=== PATIENT | male | born 1975 ===

== ENCOUNTER 2018-10-28 00:02 | Observation (INO) | payer MEDICAID, OTHER ==
[2018-10-28] MEDS ORDERED: Sodium Chloride 0.9% 1,000 ML IV STA (00:27)
--- NOTE | 2018-10-28 00:27 | ED PDOC ---
Arrival/HPI - General Chief Complaint: Abdominal Pain Time Seen by Provider: 10/28/18 00:10 Historian: Patient - History of Present Illness Narrative History of Present Illness (Text): 10/28/18 00:26 Anderson Banerjee is a 43 year old male, whose past medical history includes cholecystectomy and hypertension, who presents to the ED complaining of abdominal pain. Patient states he has been experiencing LLQ abdominal pain radiating to his left flank at time for the past 2 days. Patient reports associated intermittent nausea. Patient denies any fever, chills, vomiting, diarrhea, headache, dizziness, or any other complaints. Symptom Onset: Gradual Symptom Course: Unchanged Activities at Onset: Light Context: Home Past Medical History - Provider Review Nursing Documentation Reviewed: Yes - Cardiac Hx Cardiac Disorders: Yes Hx Hypertension: Yes - Pulmonary Hx Respiratory Disorders: No - Gastrointestinal Hx Gastrointestinal Disorders: Yes Other/Comment: Gall Bladder removal - Genitourinary/Gynecological Hx Genitourinary Disorders: No - Psychiatric Hx Psychophysiologic Disorder: No Hx Substance Use: No - Surgical History Hx Cholecystectomy: Yes - Anesthesia Hx Anesthesia: Yes Family/Social History - Physician Review Nursing Documentation Reviewed: Yes Family/Social History: Unknown Family HX Smoking Status: Never Smoked Hx Alcohol Use: Yes Frequency of alcohol use: Socially Hx Substance Use: No Allergies/Home Meds Allergies/Adverse Reactions: Allergies No Known Allergies Allergy (Verified 10/28/18 00:12) Review of Systems - Physician Review All systems were reviewed & negative as marked: Yes - Review of Systems Constitutional: Normal. absent: Fevers Eyes: Normal ENT: Normal Respiratory: Normal. absent: SOB, Cough Cardiovascular: Normal. absent: Chest Pain Gastrointestinal: Abdominal Pain. absent: Diarrhea, Vomiting Genitourinary Male: Normal. absent: Dysuria, Frequency, Hematuria, Urinary Output Changes Musculoskeletal: Back Pain. absent: Neck Pain Skin: Normal. absent: Rash Neurological: Normal. absent: Headache, Dizziness Endocrine: Normal Hemo/Lymphatic: Normal Psychiatric: Normal Physical Exam Vital Signs Reviewed: Yes Vital Signs Temp Pulse Resp BP Pulse Ox 10/28/18 00:12 97.7 F 86 18 154/90 H 95 Temperature: Afebrile Blood Pressure: Normal Pulse: Regular Respiratory Rate: Normal Appearance: Positive for: Well-Appearing, Non-Toxic, Comfortable Pain Distress: None Mental Status: Positive for: Alert and Oriented X 3 - Systems Exam Head: Present: Atraumatic, Normocephalic Pupils: Present: PERRL Extroacular Muscles: Present: EOMI Conjunctiva: Present: Normal Mouth: Present: Moist Mucous Membranes Neck: Present: Normal Range of Motion Respiratory/Chest: Present: Clear to Auscultation, Good Air Exchange. No: Respiratory Distress, Accessory Muscle Use Cardiovascular: Present: Regular Rate and Rhythm, Normal S1, S2. No: Murmurs Abdomen: Present: Tenderness (left lower abdomen). No: Distention, Peritoneal Signs Back: Present: Normal Inspection. No: CVA Tenderness, Midline Tenderness, Paraspinal Tenderness Upper Extremity: Present: Normal Inspection. No: Cyanosis, Edema Lower Extremity: Present: Normal Inspection. No: Edema Neurological: Present: GCS=15, CN II-XII Intact, Speech Normal Skin: Present: Warm, Dry, Normal Color. No: Rashes Psychiatric: Present: Alert, Oriented x 3, Normal Insight, Normal Concentration Medical Decision Making ED Course and Treatment: 10/28/18 00:26 Impression: 43 year old male complaining of LLQ pain radiating to his left flank pain. Plan: -- CT Abdomen and Pelvis w/o contrast -- EKG -- Labs, lipase -- UA -- IV fluids -- Toradol -- Reassess Progress Notes: Reviewed EKG, NSR at 84 bpm. Incomplete RBBB. No acute changes. 10/28/18 01:40 CT Abdomen and Pelvis: Diffuse colonic diverticulosis. Uncomplicated acute diverticulitis of the descending colon without perforation or abscess formation. Bilateral basilar hypoventilatory pulmonary changes. Normal unenhanced liver. Surgically absent gallbladder and nondilated extrahepatic biliary system. Normal unenhanced spleen. Normal pancreas. Normal bilateral adrenal glands. Normal size of the right kidney. There is no right renal mass. There are no right renal calculi. There is no right hydronephrosis. Normal visualized right ureter. Normal size of the left kidney. There is no left renal mass. There are no left renal calculi. There is no left hydronephrosis. Normal visualized left ureter. Normal visualized stomach. Normal small intestine. The appendix is visualized and appears normal. There is no demonstrated peritoneal fluid. Normal abdominal aorta. Normal inferior vena cava. Normal retroperitoneum. Normal urinary bladder. There is no pelvic mass lesion or lymphadenopathy. There is no pelvic fluid. Normal abdominal wall. Normal osseous structures. IMPRESSION: Uncomplicated acute diverticulitis of the descending colon. Electronically signed on Oct 28, 2018 1:34:39 AM EST by: Salvador Gomez M.D., Certified by ABR, MSK, Neuroradiology 10/28/18 01:47 Case discussed with medical reimbursement specialist and Dr. Reese, who accept pt in to hospitalist service. Pt will go to [facility] observation for diverticulitis. - Lab Interpretations I have reviewed the lab results: Yes - RAD Interpretation Cold Meat Cook: Radiologist - EKG Interpretation Interpreted by ED Physician: Yes Type: 12 lead EKG - Scribe Statement The provider has reviewed the documentation as recorded by the Scribe Gala Diaz All medical record entries made by the Scribe were at my direction and personally dictated by me. I have reviewed the chart and agree that the record accurately reflects my personal performance of the history, physical exam, medical decision making, and the department course for this patient. I have also personally directed, reviewed, and agree with the discharge instructions and disposition. Disposition/Present on Arrival - Present on Arrival Any Indicators Present on Arrival: No History of DVT/PE: No History of Uncontrolled Diabetes: No Urinary Catheter: No History of Decub. Ulcer: No History Surgical Site Infection Following: None - Disposition Have Diagnosis and Disposition been Completed?: Yes Diagnosis: Diverticulitis Disposition: HOSPITALIZED Disposition Time: 01:46 Patient Problems: Current Active Problems Problem Status Onset Diverticulitis Acute Condition: STABLE Forms: [employer] (Amharic)
[2018-10-28 01:24] LABS: HEMOGLOBIN 13.5 g/dL (14.0-18.0); MEAN CELL VOLUME 87.5 fl (80.0-105.0); MEAN CORPUSCULAR HEMOGLOBIN 30.6 pg (25.0-35.0); MEAN PLATELET VOLUME 10.4 fl (7.0-11.0); RBC 4.41 10^6/uL (3.5-6.1); URINE BILIRUBIN NEGATIVE (NEGATIVE); URINE BLOOD NEGATIVE (NEGATIVE); URINE GLUCOSE (UA) NEGATIVE (NEGATIVE); URINE LEUKOCYTE ESTERASE NEGATIVE Leu/uL (NEGATIVE); URINE PROTEIN TRACE mg/dL (<30 mg/dL); URINE UROBILINOGEN 0.2 E.U./dL (<1 E.U./dL)
[2018-10-28 01:25] LABS: URINE APPEARANCE CLEAR (CLEAR); URINE COLOR YELLOW (YELLOW)
[2018-10-28 01:39] LABS: ALB/GLOB RATIO 1.3 (1.1-1.8); ALT/SGPT 54 U/L (7-56); AST/SGOT 30 U/L (17-59); BLOOD UREA NITROGEN 17 mg/dL (7-21); CALCIUM 8.4 mg/dL (8.4-10.5); GFR NON-AFRICAN AMERICAN > 60; LIPASE 87 U/L (23-300)
[2018-10-28] MEDS ORDERED: cefTRIAXone 1 gm 1 GM/100 ML BAG IV STA (01:43)
[2018-10-28] MEDS ORDERED: metroNIDAZOLE IV 500 mg/100 ml 500 MG/100 ML BAG IVPB STA (01:44)
[2018-10-28] MEDS ORDERED: Potassium Chloride 20 mEq ER Tab PO STA (01:47)
[2018-10-28 02:00] LABS: URINE EPITHELIAL CELLS 0 - 2 /hpf (0-5); URINE RBC 0 - 2 /hpf (0-2); URINE WBC 0 - 2 /hpf (0-6)
[2018-10-28] MEDS: Sodium Chloride 0.9% 1,000 ML IV SCH ×2 (03:44→14:36)
[2018-10-28 04:35] VITALS: BMI 33.1
--- NOTE | 2018-10-28 04:43 | CP.PCM.HP ---
<Junaid Fernández - Last Filed: 10/28/18 05:29> History of Present Illness - History of Present Illness History of Present Illness: Junaid Fernández, PGY-1 History and Physical for the Hospitalist Service CC: LLQ abdominal pain Mr. Banerjee is a 43 M with significant PMHx significant for HTN who presents with LLQ abdominal pain. Patient reports a 2 day history of left sided abdominal pain that radiates to L flank. Patient reports intermittent waves of nausea but denies vomiting. Patient reports pain is worse with movement and improves when lying down. Patient reports associated watery nonbloody feces x3 times since yesterday, with many other episodes of the urge to defecate. Patient rates the p ain as an 8/10. Patient denies recent infections and reports a regular appetite. Patient reports general fatigue. Denies chest pain, shortness of breath, palpitations, fevers, chills, dysuria, melena, hematochezia, scrotal pain, recent travel, sick contacts. PMHx: HTN PSHx: cholecystectomy All: NKDA SOcial: Denies ETOH, tobacco and illicit drug use Fam hx: denies Meds: denies PMD: None Present on Admission - Present on Admission Any Indicators Present on Admission: No Review of Systems - Review of Systems Review of Systems: 12 point ROS completed and negative except as described in HPI Past Patient History - Past Social History Smoking Status: Never Smoked - CARDIAC Hx Cardiac Disorders: Yes Hx Hypercholesterolemia: Yes Hx Hypertension: Yes - PULMONARY Hx Respiratory Disorders: No - NEUROLOGICAL Hx Neurological Disorder: No - HEENT Hx HEENT Problems: No Other/Comment: uses glasses - RENAL Hx Chronic Kidney Disease: No - ENDOCRINE/METABOLIC Hx Endocrine Disorders: No - HEMATOLOGICAL/ONCOLOGICAL Hx Blood Disorders: No - INTEGUMENTARY Hx Dermatological Problems: No - MUSCULOSKELETAL/RHEUMATOLOGICAL Hx Musculoskeletal Disorders: No Hx Falls: No - GASTROINTESTINAL Hx Gastrointestinal Disorders: Yes Hx Diverticulitis: Yes (current) - GENITOURINARY/GYNECOLOGICAL Hx Genitourinary Disorders: No - PSYCHIATRIC Hx Psychophysiologic Disorder: No Hx Substance Use: No - SURGICAL HISTORY Hx Surgeries: Yes Hx Cholecystectomy: Yes - ANESTHESIA Hx Anesthesia: Yes Meds Allergies/Adverse Reactions: Allergies Allergy/AdvReac Type Severity Reaction Status Date / Time No Known Allergies Allergy Verified 10/28/18 00:12 Physical Exam - Constitutional Appears: Well, Non-toxic, No Acute Distress - Head Exam Head Exam: ATRAUMATIC, NORMAL INSPECTION, NORMOCEPHALIC - Eye Exam Eye Exam: EOMI, Normal appearance Pupil Exam: PERRL - ENT Exam ENT Exam: Mucous Membranes Moist - Neck Exam Neck exam: Positive for: Normal Inspection - Respiratory Exam Respiratory Exam: Decreased Breath Sounds, Clear to Auscultation Bilateral, NORMAL BREATHING PATTERN. absent: Wheezes - Extremities Exam Extremities exam: Positive for: normal inspection. Negative for: joint swelling, tenderness - Back Exam Back exam: absent: CVA tenderness (L), CVA tenderness (R) - Skin Skin Exam: Dry, Intact, Normal Color, Warm Results - Vital Signs Recent Vital Signs: Last Vital Signs Temp 98.0 F 10/28/18 02:17 Pulse 71 10/28/18 02:17 Resp 16 10/28/18 03:20 BP 131/72 10/28/18 02:17 Pulse Ox 97 10/28/18 02:17 - Labs Result Diagrams: 10/28/18 01:10 10/28/18 01:10 Labs: Laboratory Results - last 24 hr 10/28/18 10/28/18 10/28/18 01:10 01:10 01:10 WBC 6.0 RBC 4.41 Hgb 13.5 L Hct 38.6 L MCV 87.5 MCH 30.6 MCHC 35.0 RDW 13.0 Plt Count 169 MPV 10.4 Sodium 139 Potassium 3.4 L Chloride 105 Carbon Dioxide 25 Anion Gap 13 BUN 17 Creatinine 0.8 Est GFR ( Amer) > 60 Est GFR (Non-Af Amer) > 60 Random Glucose 111 H Calcium 8.4 Total Bilirubin 0.4 AST 30 ALT 54 Alkaline Phosphatase 85 Total Protein 7.1 Albumin 4.0 Globulin 3.1 Albumin/Globulin Ratio 1.3 Lipase 87 Urine Color Yellow Urine Appearance Clear Urine pH 7.0 Ur Specific [place] 1.020 Urine Protein Trace H Urine Glucose (UA) Negative Urine Ketones Negative Urine Blood Negative Urine Nitrate Negative Urine Bilirubin Negative Urine Urobilinogen 0.2 Ur Leukocyte Esterase Negative Urine RBC 0 - 2 Urine WBC 0 - 2 Ur Epithelial Cells 0 - 2 Assessment & Plan - Assessment and Plan (Free Text) Assessment: 43 M with PMHx of HTN who presents with LL Q pain likely 2/2 diverticulosis and diverticulitis Diverticulitis - CT Abdomen and Pelvis: Diffuse colonic diverticulosis. Uncomplicated acute diverticulitis of the descending colon without perforation or abscess formation. - Ceftriaxone and Flagyl for intraabdominal coverage - Pain control with Toradol - IVF NS @ 100 cc/hr - fecal leukocytes, stool cx pending HTN - Controlled off of medications - continue to monitor, consider starting on med if necessary Hypokalemia - repleted, continue to monitor in AM labs GI/DVT PPx: Heparin SC, SCDs Protonix Patient seen, case reviewed and plan approved by Dr. Reese. Junaid Fernández, PGY-1 <Walker Reese - Last Filed: 10/28/18 06:18> Results - Vital Signs Recent Vital Signs: Last Vital Signs Temp 98.0 F 10/28/18 02:17 Pulse 71 10/28/18 02:17 Resp 16 10/28/18 03:20 BP 131/72 10/28/18 02:17 Pulse Ox 97 10/28/18 02:17 - Labs Result Diagrams: 10/28/18 01:10 10/28/18 01:10 Labs: Laboratory Results - last 24 hr 10/28/18 10/28/18 10/28/18 01:10 01:10 01:10 WBC 6.0 RBC 4.41 Hgb 13.5 L Hct 38.6 L MCV 87.5 MCH 30.6 MCHC 35.0 RDW 13.0 Plt Count 169 MPV 10.4 Sodium 139 Potassium 3.4 L Chloride 105 Carbon Dioxide 25 Anion Gap 13 BUN 17 Creatinine 0.8 Est GFR ( Amer) > 60 Est GFR (Non-Af Amer) > 60 Random Glucose 111 H Calcium 8.4 Total Bilirubin 0.4 AST 30 ALT 54 Alkaline Phosphatase 85 Total Protein 7.1 Albumin 4.0 Globulin 3.1 Albumin/Globulin Ratio 1.3 Lipase 87 Urine Color Yellow Urine Appearance Clear Urine pH 7.0 Ur Specific [place] 1.020 Urine Protein Trace H Urine Glucose (UA) Negative Urine Ketones Negative Urine Blood Negative Urine Nitrate Negative Urine Bilirubin Negative Urine Urobilinogen 0.2 Ur Leukocyte Esterase Negative Urine RBC 0 - 2 Urine WBC 0 - 2 Ur Epithelial Cells 0 - 2 Attending/Attestation - Attestation I have personally seen and examined this patient.: Yes I have fully participated in the care of the patient.: Yes I have reviewed all pertinent clinical information: Yes Notes (Text): 10/28/18 06:17 Seen and examined. Discussed with resident. Exam and A &P as above. FH: FAIZAN
[2018-10-28] MEDS: metroNIDAZOLE IV 500 mg/100 ml 500 MG/100 ML BAG IVPB SCH ×3 (05:05→21:37)
[2018-10-28] MEDS: Pantoprazole 40 mg EC Tab PO SCH (05:05)
[2018-10-28 07:22] LABS: BASO # 0.02 K/mm3 (0.0-2.0); BASO % 0.4 % (0.0-3.0); EOS # 0.2 (0.0-0.7); HEMOGLOBIN 12.4 g/dL (14.0-18.0); LYMPH # 1.8 (1.2-3.4); LYMPH % 32.6 % (22.0-35.0); MEAN CELL VOLUME 87.6 fl (80.0-105.0); MEAN CORPUSCULAR HEMOGLOBIN 29.7 pg (25.0-35.0); MEAN CORPUSCULAR HGB CONC 33.9 g/dl (31.0-37.0); MEAN PLATELET VOLUME 10.5 fl (7.0-11.0); MONO # 0.5 (0.1-0.6); MONO % 9.7 % (1.0-6.0); RBC 4.18 10^6/uL (3.5-6.1); RED CELL DISTRIBUTION WIDTH 13.1 % (11.5-14.5); WHITE BLOOD COUNT 5.6 10^3/uL (4.5-11.0)
[2018-10-28 07:55] LABS: ALB/GLOB RATIO 1.2 (1.1-1.8); ALBUMIN 3.5 g/dL (3.0-4.8); ALT/SGPT 41 U/L (7-56); AST/SGOT 26 U/L (17-59); BLOOD UREA NITROGEN 18 mg/dL (7-21); CALCIUM 8.1 mg/dL (8.4-10.5); GFR NON-AFRICAN AMERICAN > 60
[2018-10-28] MEDS ORDERED: Potassium Chloride 20 mEq ER Tab PO ONE ×2 (07:56→12:00)
--- NOTE | 2018-10-28 08:48 | CT ---
Date of service: PROCEDURE: CT Abdomen and Pelvis without intravenous contrast HISTORY: COMPARISON: None. TECHNIQUE: CT scan of the abdomen and pelvis was performed without administration of intravenous contrast. Oral contrast was not administered. Coronal and sagittal reformatted images were obtained. Radiation dose: Total exam DLP = 873.93 mGy-cm. This CT exam was performed using one or more of the following dose reduction techniques: Automated exposure control, adjustment of the mA and/or kV according to patient size, and/or use of iterative reconstruction technique. FINDINGS: LOWER THORAX: Dependent atelectasis in the lung bases. Subsegmental atelectasis in the visualized left lower lobe. LIVER: The liver is enlarged and measures 22 cm in craniocaudad dimension.. No gross lesion or ductal dilatation. GALLBLADDER AND BILE DUCTS: Surgically absent. PANCREAS: Normal in size. No gross lesion or ductal dilatation. SPLEEN: Enlarged and measures 15 cm in craniocaudad dimension. ADRENALS: Normal in size. No discrete nodule. KIDNEYS AND URETERS: Both kidneys are normal in size. There is a 3 mm nonobstructing stone in the upper pole of the left kidney no hydronephrosis. VASCULATURE: Normal in caliber. No aortic aneurysm. No aortic atherosclerotic calcification or mural plaque present. BOWEL: Evaluation of the bowel is limited in the absence of oral contrast. The small bowel loops are normal in caliber. There is extensive left colonic diverticulosis. There is segmental circumferential mural thickening in the mid descending colon with pericolonic inflammatory changes. No micro perforation or abscess. APPENDIX: Normal appendix. PERITONEUM: No free fluid. No free air. LYMPH NODES: No enlarged lymph nodes. BLADDER: Well distended and normal in appearance. REPRODUCTIVE: The prostate gland is normal in size. BONES: No acute fracture. Bilateral pars interarticularis defects at L5 with grade 1 anterior listhesis of L5 on S1. Desiccation of the L5-S1 disc. OTHER FINDINGS: None. IMPRESSION: 1. Short segment acute colonic diverticulitis involving the mid descending colon. No micro perforation or abscess. Follow-up imaging after medical management is recommended to ensure complete resolution. 2. Moderate hepatosplenomegaly. 3. 3 mm nonobstructing stone in the upper pole of the left kidney. 4. 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 A preliminary report was provided by [employer] [facility]. The final report is tagged to the PA review folder.
[2018-10-28] MEDS: cefTRIAXone 1 gm 1 GM/100 ML BAG IVPB SCH (09:05)
[2018-10-28] MEDS ORDERED: Ciprofloxacin 200mg/100ml D5W 100 ML IVPB SCH (10:00)
--- NOTE | 2018-10-28 10:21 | CARD ---
APPROVED REPORT Date of service: 10/28/2018 EKG Measurement Heart [id number] <Conclusion> Normal sinus rhythm Incomplete right bundle branch block Otherwise normal ECG
[2018-10-29] MEDS: metroNIDAZOLE IV 500 mg/100 ml 500 MG/100 ML BAG IVPB SCH (05:58)
[2018-10-29] MEDS: Pantoprazole 40 mg EC Tab PO SCH (05:59)
[2018-10-29 07:26] LABS: BASO # 0.02 K/mm3 (0.0-2.0); BASO % 0.4 % (0.0-3.0); EOS # 0.1 (0.0-0.7); EOS % 2.5 % (1.5-5.0); HEMOGLOBIN 13.1 g/dL (14.0-18.0); LYMPH # 1.7 (1.2-3.4); LYMPH % 30.4 % (22.0-35.0); MEAN CELL VOLUME 88.1 fl (80.0-105.0); MEAN CORPUSCULAR HEMOGLOBIN 29.9 pg (25.0-35.0); MEAN CORPUSCULAR HGB CONC 33.9 g/dl (31.0-37.0); MEAN PLATELET VOLUME 10.4 fl (7.0-11.0); MONO # 0.3 (0.1-0.6); MONO % 6.1 % (1.0-6.0); RBC 4.38 10^6/uL (3.5-6.1); RED CELL DISTRIBUTION WIDTH 13.2 % (11.5-14.5); WHITE BLOOD COUNT 5.5 10^3/uL (4.5-11.0)
[2018-10-29 08:16] LABS: ALB/GLOB RATIO 1.1 (1.1-1.8); ALBUMIN 3.6 g/dL (3.0-4.8); ALT/SGPT 49 U/L (7-56); AST/SGOT 27 U/L (17-59); CALCIUM 8.5 mg/dL (8.4-10.5); GFR NON-AFRICAN AMERICAN > 60
--- NOTE | 2018-10-29 09:00 | CP.PCM.PN ---
<Tj Greenberg - Last Filed: 10/29/18 14:53> Subjective - Date & Time of Evaluation Date of Evaluation: 10/29/18 Time of Evaluation: 09:00 - Subjective Subjective: PGY-1 Medicine Progress note for Dr. Parker Patient seen and examined at bedside. No acute events overnight. Patient states that his abdominal pain is improving and is a 3/10 today. He states that he has been tolerating his liquid diet and would like to try to start eating solid food. He denies nausea, vomiting, diarrhea, headache, chest pain, shortness of b reath, diarrhea, or urinary symptoms. Objective - Vital Signs/Intake and Output Vital Signs (last 24 hours): Temp Pulse Resp BP Pulse Ox 98 F 69 18 112/86 97 10/28/18 21:25 10/28/18 21:25 10/28/18 21:25 10/28/18 21:25 10/28/18 21:25 Intake and Output: 10/29/18 10/29/18 06:59 18:59 Intake Total 5220 Output Total 3000 Balance 2220 - Medications Medications: Current Medications Heparin Sodium (Porcine) (Heparin) 5,000 units SC Q8 [facility]; Protocol Last Admin: 10/29/18 05:59 Dose: 5,000 units Metronidazole (Flagyl) 500 mg in 100 mls @ 100 mls/hr IVPB Q8 [facility]; Protocol Last Admin: 10/29/18 05:58 Dose: 100 mls/hr Sodium Chloride (Sodium Chloride 0.9%) 1,000 mls @ 100 mls/hr IV .Q10H K[facility]AN Last Admin: 10/28/18 14:36 Dose: 100 mls/hr Ceftriaxone Sodium (Rocephin 1 Gram Ivpb) 1 gm in 100 mls @ 100 mls/hr IVPB D AILY [facility]; Protocol Last Admin: 10/28/18 09:05 Dose: 100 mls/hr Ketorolac Tromethamine (Toradol) 15 mg IVP Q6H PRN PRN Reason: Pain, moderate (4-7) Last Admin: 10/29/18 01:45 Dose: 15 mg Pantoprazole Sodium (Protonix Ec Tab) 40 mg PO 0600 [facility] Last Admin: 10/29/18 05:59 Dose: 40 mg - Labs Labs: 10/29/18 07:00 10/29/18 07:00 - Constitutional Appears: Well, Non-toxic, No Acute Distress - Head Exam Head Exam: ATRAUMATIC, NORMAL INSPECTION - Eye Exam Eye Exam: EOMI, Normal appearance Pupil Exam: NORMAL ACCOMODATION, PERRL - Respiratory Exam Respiratory Exam: Clear to Ausculation Bilateral. absent: Rales, Rhonchi, Wheezes, Respiratory Distress - Cardiovascular Exam Cardiovascular Exam: REGULAR RHYTHM, +S1, +S2. absent: Gallop, Rubs, Murmur - GI/Abdominal Exam GI & Abdominal Exam: Soft, Tenderness (Tender to palpation on the LUQ and LLQ), Normal Bowel Sounds. absent: Distended, Rigid - Extremities Exam Extremities Exam: absent: Calf Tenderness, Pedal Edema - Neurological Exam Neurological Exam: Alert, Awake, Oriented x3 - Psychiatric Exam Psychiatric exam: Normal Affect, Normal Mood - Skin Skin Exam: Dry, Intact, Normal Color, Warm Assessment and Plan - Assessment and Plan (Free Text) Assessment: Patient is a 43 year old male with PMHx of HTN who presents with LLQ pain admitted for acute diverticulitis. Plan: Acute diverticulitis - CT Abdomen and Pelvis: Diffuse colonic diverticulosis. Uncomplicated acute diverticulitis of the descending colon without perforation or abscess formation. - Discontinue Rocephin - Start Ciprofloxacin 500mg PO BID (Started on 10/29) - Metronidazole 500mg PO TID (started on 10/28) - Toradol 15mg IVP PRN for pain - IVF NS @ 100 cc/hr - Advance to soft diet today - fecal leukocytes, stool cx pending Hx of HTN - Patient not on antihypertensive medications at home - Patient has been hemodynamically stable - Continue to monitor Hypokalemia, resolved - repleted, continue to monitor in AM labs GI/DVT PPx: - Heparin SC, SCDs - Protonix 40mg PO QD Patient seen and case discussed with attending, Dr. Parker. Tj Greenberg, PGY-1 <Sanford Parker - Last Filed: 10/30/18 19:59> Objective - Vital Signs/Intake and Output Vital Signs (last 24 hours): Temp Pulse Resp BP Pulse Ox 98 F 59 L 20 108/74 98 10/30/18 06:00 10/30/18 06:00 10/30/18 06:00 10/30/18 06:00 10/30/18 06:00 - Labs Labs: 10/30/18 06:30 10/30/18 06:30 Attending/Attestation - Attestation I have personally seen and examined this patient.: Yes I have fully participated in the care of the patient.: Yes I have reviewed all pertinent clinical information, including history, physical exam and plan: Yes
[2018-10-29 09:11] LABS: BLOOD UREA NITROGEN 11 mg/dL (7-21)
[2018-10-29] MEDS: cefTRIAXone 1 gm 1 GM/100 ML BAG IVPB SCH (09:23)
[2018-10-29] MEDS: Sodium Chloride 0.9% 1,000 ML IV SCH (13:56)
[2018-10-29 22:35] VITALS: TEMP 98
[2018-10-30] MEDS: Pantoprazole 40 mg EC Tab PO SCH (05:50)
[2018-10-30 06:51] LABS: BASO # 0.02 K/mm3 (0.0-2.0); BASO % 0.4 % (0.0-3.0); EOS # 0.2 (0.0-0.7); EOS % 3.5 % (1.5-5.0); HEMOGLOBIN 13.7 g/dL (14.0-18.0); LYMPH # 1.4 (1.2-3.4); LYMPH % 27.8 % (22.0-35.0); MEAN CELL VOLUME 87.3 fl (80.0-105.0); MEAN CORPUSCULAR HEMOGLOBIN 29.9 pg (25.0-35.0); MEAN CORPUSCULAR HGB CONC 34.3 g/dl (31.0-37.0); MEAN PLATELET VOLUME 10.8 fl (7.0-11.0); MONO # 0.4 (0.1-0.6); MONO % 7.6 % (1.0-6.0); RBC 4.58 10^6/uL (3.5-6.1); RED CELL DISTRIBUTION WIDTH 12.9 % (11.5-14.5); WHITE BLOOD COUNT 4.9 10^3/uL (4.5-11.0)
--- NOTE | 2018-10-30 07:08 | CP.PCM.PN ---
Subjective - Date & Time of Evaluation Date of Evaluation: 10/30/18 Time of Evaluation: 07:08 Objective - Vital Signs/Intake and Output Vital Signs (last 24 hours): Temp Pulse Resp BP Pulse Ox 98 F 60 18 121/84 97 10/29/18 22:34 10/29/18 22:34 10/29/18 22:34 10/29/18 22:34 10/29/18 22:34 Intake and Output: 10/30/18 10/30/18 06:59 18:59 Intake Total 540 Balance 540 - Medications Medications: Current Medications Ciprofloxacin (Cipro) 500 mg PO Q12 [facility]; Protocol Stop: 11/02/18 22:01 Last Admin: 10/29/18 21:13 Dose: 500 mg Heparin Sodium (Porcine) (Heparin) 5,000 units SC Q8 [facility]; Protocol Last Admin: 10/30/18 05:51 Dose: 5,000 units Ketorolac Tromethamine (Toradol) 15 mg IVP Q6H PRN PRN Reason: Pain, moderate (4-7) Last Admin: 10/29/18 01:45 Dose: 15 mg Metronidazole (Flagyl) 500 mg PO TID [facility]; Protocol Stop: 11/02/18 14:01 Last Admin: 10/29/18 19:25 Dose: 500 mg Pantoprazole Sodium (Protonix Ec Tab) 40 mg PO 0600 [facility] Last Admin: 10/30/18 05:50 Dose: 40 mg - Labs Labs: 10/30/18 06:30 10/29/18 07:00
[2018-10-30 07:20] LABS: ALB/GLOB RATIO 1.2 (1.1-1.8); ALBUMIN 3.9 g/dL (3.0-4.8); ALT/SGPT 52 U/L (7-56); AST/SGOT 32 U/L (17-59); BLOOD UREA NITROGEN 11 mg/dL (7-21); CALCIUM 8.8 mg/dL (8.4-10.5); GFR NON-AFRICAN AMERICAN > 60
[2018-10-30 08:13] VITALS: BP 108/74; PULSE 59; RESP 20; O2SAT 98
--- NOTE | 2018-10-30 17:15 | CP.PCM.DIS ---
<Tj Greenberg - Last Filed: 10/30/18 17:18> Provider - Provider Date of Admission: 10/28/18 01:47 Attending physician: Shaye Bryan MD Time Spent in preparation of Discharge (in minutes): 45 Diagnosis - Discharge Diagnosis (1) Diverticulitis Status: Resolved Hospital Course - Lab Results Lab Results: Micro Results 10/28/18 02:23 Blood Blood Culture - Preliminary NO GROWTH AFTER 48 HOURS 10/28/18 02:05 Blood Blood Culture - Preliminary NO GROWTH AFTER 48 HOURS Most Recent Lab Values WBC 4.9 10^3/uL (4.5-11.0) 10/30/18 06:30 RBC 4.58 10^6/uL (3.5-6.1) 10/30/18 06:30 Hgb 13.7 g/dL (14.0-18.0) L 10/30/18 06:30 Hct 40.0 % (42.0-52.0) L 10/30/18 06:30 MCV 87.3 fl (80.0-105.0) 10/30/18 06:30 MCH 29.9 pg (25.0-35.0) 10/30/18 06:30 MCHC 34.3 g/dl (31.0-37.0) 10/30/18 06:30 RDW 12.9 % (11.5-14.5) 10/30/18 06:30 Plt Count 183 10^3/uL (120.0-450.0) 10/30/18 06:30 MPV 10.8 fl (7.0-11.0) 10/30/18 06:30 Neut % (Auto) 60.7 % (50.0-68.0) 10/30/18 06:30 Lymph % (Auto) 27.8 % (22.0-35.0) 10/30/18 06:30 Banks % (Auto) 7.6 % (1.0-6.0) H 10/30/18 06:30 Eos % (Auto) 3.5 % (1.5-5.0) 10/30/18 06:30 Baso % (Auto) 0.4 % (0.0-3.0) 10/30/18 06:30 Lymph # (Auto) 1.4 (1.2-3.4) 10/30/18 06:30 Banks # (Auto) 0.4 (0.1-0.6) 10/30/18 06:30 Eos # (Auto) 0.2 (0.0-0.7) 10/30/18 06:30 Baso # (Auto) 0.02 K/mm3 (0.0-2.0) 10/30/18 06:30 Absolute Neuts (auto) 2.97 (1.4-6.5) 10/30/18 06:30 Sodium 138 mmol/L (132-148) 10/30/18 06:30 Potassium 3.9 mmol/L (3.6-5.0) 10/30/18 06:30 Chloride 106 mmol/L (98-107) 10/30/18 06:30 Carbon Dioxide 24 mmol/L (21-33) 10/30/18 06:30 Anion Gap 12 (10-20) 10/30/18 06:30 BUN 11 mg/dL (7-21) 10/30/18 06:30 Creatinine 0.7 mg/dl (0.8-1.5) L 10/30/18 06:30 Est GFR ( Amer) > 60 10/30/18 06:30 Est GFR (Non-Af Amer) > 60 10/30/18 06:30 Random Glucose 89 mg/dL (70-110) 10/30/18 06:30 Calcium 8.8 mg/dL (8.4-10.5) 10/30/18 06:30 Phosphorus 3.7 mg/dL (2.5-4.5) 10/28/18 06:25 Magnesium 2.1 mg/dL (1.7-2.2) 10/28/18 06:25 Total Bilirubin 0.4 mg/dL (0.2-1.3) 10/30/18 06:30 AST 32 U/L (17-59) 10/30/18 06:30 ALT 52 U/L (7-56) 10/30/18 06:30 Alkaline Phosphatase 83 U/L (38-126) 10/30/18 06:30 Total Protein 7.1 g/dL (5.8-8.3) 10/30/18 06:30 Albumin 3.9 g/dL (3.0-4.8) 10/30/18 06:30 Globulin 3.2 gm/dL 10/30/18 06:30 Albumin/Globulin Ratio 1.2 (1.1-1.8) 10/30/18 06:30 Lipase 87 U/L (23-300) 10/28/18 01:10 Urine Color Yellow (YELLOW) 10/28/18 01:10 Urine Appearance Clear (CLEAR) 10/28/18 01:10 Urine pH 7.0 (4.7-8.0) 10/28/18 01:10 Ur Specific [place] 1.020 (1.005-1.035) 10/28/18 01:10 Urine Protein Trace mg/dL (<30 mg/dL) H 10/28/18 01:10 Urine Glucose (UA) Negative mg/dL (NEGATIVE) 10/28/18 01:10 Urine Ketones Negative mg/dL (NEGATIVE) 10/28/18 01:10 Urine Blood Negative (NEGATIVE) 10/28/18 01:10 Urine Nitrate Negative (NEGATIVE) 10/28/18 01:10 Urine Bilirubin Negative (NEGATIVE) 10/28/18 01:10 Urine Urobilinogen 0.2 E.U./dL (<1 E.U./dL) 10/28/18 01:10 Ur Leukocyte Esterase Negative Vahid/uL (NEGATIVE) 10/28/18 01:10 Urine RBC 0 - 2 /hpf (0-2) 10/28/18 01:10 Urine WBC 0 - 2 /hpf (0-6) 10/28/18 01:10 Ur Epithelial Cells 0 - 2 /hpf (0-5) 10/28/18 01:10 - Hospital Course Hospital Course: Patient is a 43 year old male with past medical history of HTN who presented to ED with LLQ abdominal pain of 2 days radiating to left flank. Patient rated the pain as an 8/10. Patient reported intermittent waves of nausea without vomiting. He also reported a few episodes of non-bloody loose stools. The pain worsened with movement and improved when lying down. CT scan of Abdomen and Pelvis indicated diffuse colonic diverticulosis and uncomplicated acute diverticulitis of the descending colon without perforation or abscess formation. Patient was started on Rocephin 1g IV QD and Flagyl 500mg PO TID, given Toradol for pain control as well as IVF NS @ 100 cc/hr. All other lab work up was negative. Patient status improved throughout hospital stay with pain decreasing consistently. Patient was able to handle advancing diet without nausea and that resulted in more solid stool. The Rocephin 1g IV QD was switched to Ciprofloxacin 500mg PO BID on 10/29. He reported feeling better this morning with no abdominal pain and was ambulating without pain. He was told to follow up with PCP at the [facility] clinic. He was instructed to continue his Antibiotics and home medication regimen. In addition, he was told to return to the emergency department if he had any recurring or new concerning symptoms. Discharge Instructions: 1. Start taking Ciprofloxacin 500mg twice daily for 5 days and Flagyl 500mg three times daily for 5 days. Avoid drinking alcohol while you are on antibiotics. 2. Follow up at the [facility], you appointment is on November 19 at 1:30PM. 3. Eat less fatty and fried food. Increase your daily fiber intake by eating plenty of fruits and vegetables. 4. Return to the emergency room for worsening or newly concerning symptoms. Discharge Exam - Head Exam Head Exam: ATRAUMATIC, NORMAL INSPECTION - Additional Findings Additional findings: - Constitutional Appears: Well, Non-toxic, No Acute Distress - Head Exam Head Exam: ATRAUMATIC, NORMAL INSPECTION - Eye Exam Eye Exam: EOMI, Normal appearance Pupil Exam: NORMAL ACCOMODATION, PERRL - Respiratory Exam Respiratory Exam: Clear to Ausculation Bilateral. absent: Rales, Rhonchi, Wheezes, Respiratory Distress - Cardiovascular Exam Cardiovascular Exam: REGULAR RHYTHM, +S1, +S2. absent: Gallop, Rubs, Murmur - GI/Abdominal Exam GI & Abdominal Exam: Soft, non-tender, Normal Bowel Sounds. absent: Distended, Rigid - Extremities Exam Extremities Exam: absent: Calf Tenderness, Pedal Edema - Neurological Exam Neurological Exam: Alert, Awake, Oriented x3 - Psychiatric Exam Psychiatric exam: Normal Affect, Normal Mood - Skin Skin Exam: Dry, Intact, Normal Color, Warm Discharge Plan - Discharge Medications Prescriptions: RX: Ciprofloxacin [Cipro] 500 mg PO Q12 #10 tab RX: metroNIDAZOLE [Flagyl] 500 mg PO TID #15 tab - Follow Up Plan Condition: STABLE Disposition: HOME/ ROUTINE Instructions: Diverticulitis (DC) Additional Instructions: 1. Start taking Ciprofloxacin 500mg twice daily for 5 days and Flagyl 500mg three times daily for 5 days. Avoid drinking alcohol while you are on antibiotics. 2. Follow up at the [facility], you appointment is on November 19 at 1:30PM. 3. Eat less fatty and fried food. Increase your daily fiber intake by eating plenty of fruits and vegetables. 4. Return to the emergency room for worsening or newly concerning symptoms. Referrals: Chinyere De MD [Medical Doctor] - <Sanford Parker - Last Filed: 10/30/18 19:55> Provider - Provider Date of Admission: 10/28/18 01:47 Attending physician: Shaye Bryan MD Hospital Course - Lab Results Lab Results: Micro Results 10/28/18 02:23 Blood Blood Culture - Preliminary NO GROWTH AFTER 48 HOURS 10/28/18 02:05 Blood Blood Culture - Preliminary NO GROWTH AFTER 48 HOURS Most Recent Lab Values WBC 4.9 10^3/uL (4.5-11.0) 10/30/18 06:30 RBC 4.58 10^6/uL (3.5-6.1) 10/30/18 06:30 Hgb 13.7 g/dL (14.0-18.0) L 10/30/18 06:30 Hct 40.0 % (42.0-52.0) L 10/30/18 06:30 MCV 87.3 fl (80.0-105.0) 10/30/18 06:30 MCH 29.9 pg (25.0-35.0) 10/30/18 06:30 MCHC 34.3 g/dl (31.0-37.0) 10/30/18 06:30 RDW 12.9 % (11.5-14.5) 10/30/18 06:30 Plt Count 183 10^3/uL (120.0-450.0) 10/30/18 06:30 MPV 10.8 fl (7.0-11.0) 10/30/18 06:30 Neut % (Auto) 60.7 % (50.0-68.0) 10/30/18 06:30 Lymph % (Auto) 27.8 % (22.0-35.0) 10/30/18 06:30 Banks % (Auto) 7.6 % (1.0-6.0) H 10/30/18 06:30 Eos % (Auto) 3.5 % (1.5-5.0) 10/30/18 06:30 Baso % (Auto) 0.4 % (0.0-3.0) 10/30/18 06:30 Lymph # (Auto) 1.4 (1.2-3.4) 10/30/18 06:30 Banks # (Auto) 0.4 (0.1-0.6) 10/30/18 06:30 Eos # (Auto) 0.2 (0.0-0.7) 10/30/18 06:30 Baso # (Auto) 0.02 K/mm3 (0.0-2.0) 10/30/18 06:30 Absolute Neuts (auto) 2.97 (1.4-6.5) 10/30/18 06:30 Sodium 138 mmol/L (132-148) 10/30/18 06:30 Potassium 3.9 mmol/L (3.6-5.0) 10/30/18 06:30 Chloride 106 mmol/L (98-107) 10/30/18 06:30 Carbon Dioxide 24 mmol/L (21-33) 10/30/18 06:30 Anion Gap 12 (10-20) 10/30/18 06:30 BUN 11 mg/dL (7-21) 10/30/18 06:30 Creatinine 0.7 mg/dl (0.8-1.5) L 10/30/18 06:30 Est GFR ( Amer) > 60 10/30/18 06:30 Est GFR (Non-Af Amer) > 60 10/30/18 06:30 Random Glucose 89 mg/dL (70-110) 10/30/18 06:30 Calcium 8.8 mg/dL (8.4-10.5) 10/30/18 06:30 Phosphorus 3.7 mg/dL (2.5-4.5) 10/28/18 06:25 Magnesium 2.1 mg/dL (1.7-2.2) 10/28/18 06:25 Total Bilirubin 0.4 mg/dL (0.2-1.3) 10/30/18 06:30 AST 32 U/L (17-59) 10/30/18 06:30 ALT 52 U/L (7-56) 10/30/18 06:30 Alkaline Phosphatase 83 U/L (38-126) 10/30/18 06:30 Total Protein 7.1 g/dL (5.8-8.3) 10/30/18 06:30 Albumin 3.9 g/dL (3.0-4.8) 10/30/18 06:30 Globulin 3.2 gm/dL 10/30/18 06:30 Albumin/Globulin Ratio 1.2 (1.1-1.8) 10/30/18 06:30 Lipase 87 U/L (23-300) 10/28/18 01:10 Urine Color Yellow (YELLOW) 10/28/18 01:10 Urine Appearance Clear (CLEAR) 10/28/18 01:10 Urine pH 7.0 (4.7-8.0) 10/28/18 01:10 Ur Specific [place] 1.020 (1.005-1.035) 10/28/18 01:10 Urine Protein Trace mg/dL (<30 mg/dL) H 10/28/18 01:10 Urine Glucose (UA) Negative mg/dL (NEGATIVE) 10/28/18 01:10 Urine Ketones Negative mg/dL (NEGATIVE) 10/28/18 01:10 Urine Blood Negative (NEGATIVE) 10/28/18 01:10 Urine Nitrate Negative (NEGATIVE) 10/28/18 01:10 Urine Bilirubin Negative (NEGATIVE) 10/28/18 01:10 Urine Urobilinogen 0.2 E.U./dL (<1 E.U./dL) 10/28/18 01:10 Ur Leukocyte Esterase Negative Vahid/uL (NEGATIVE) 10/28/18 01:10 Urine RBC 0 - 2 /hpf (0-2) 10/28/18 01:10 Urine WBC 0 - 2 /hpf (0-6) 10/28/18 01:10 Ur Epithelial Cells 0 - 2 /hpf (0-5) 10/28/18 01:10 Attending/Attestation - Attestation I have personally seen and examined this patient.: Yes I have fully participated in the care of the patient.: Yes I have reviewed all pertinent clinical information, including history, physical exam and plan: Yes
== END 2018-10-30 16:39 | disposition home or self-care (01) ==
LOC: ED 00:02 → ERH 01:47 → 5RNO 03:17
PROVIDERS: ADMIT Internal Medicine; ATTEND Internal Medicine
DX: K57.32 Diverticulitis of large intestine without perforation or abscess without bleeding (principal); E78.00 Pure hypercholesterolemia, unspecified; E87.6 Hypokalemia; I10 Essential (primary) hypertension; Z90.49 Acquired absence of other specified parts of digestive tract
CPT/HCPCS: 36415; 74176; 80053; 81001; 83690; 83735; 84100; 85025; 85027; 87040; 93005; 96361; 96365; 96372; 96375; 96376; 99284; G0378; J0696; J1644; J1885; J7030